=== PATIENT | male | born 1960 | race Caucasian/White ===

== ENCOUNTER → 2021-05-03 | Outpatient (CLI) | payer BC ==
[~2021-05-03] MED LIST: ASA81BEC PO; CARDIZEM CD180 MG PO; CARISOPRODOL 3350 MG PO; COUMADIN 2 MG TA2 M1; CYMBALTA20 MG PO; FLEXERIL PO; HYDROCODON-ACE1 EAC1 PO; HYDROCODON-ACE1 EAC5; NEURONTIN 300300 M1 PO; NEXIUM40 MG PO; NORCO 5-325 TA1 EACH PO; NORFLEX100 MG PO; WELLBUTRIN SR150 MG PO
[2021-05-03 11:23] LABS: HEMATOCRIT 39.3 % (42.0-52.0); HEMOGLOBIN 12.9 gm/dL (14.0-18.0); MCH 26.8 pg (26.0-34.0); MCHC 32.8 g/dL (28.0-37.0); MCV 81.9 fL (80.0-100.0); RBC 4.8 mil/uL (4.50-6.00); WBC 8.5 thou/uL (4.0-11.0)
[2021-05-03 11:28] LABS: URINE BILIRUBIN NEGATIVE (Negative); URINE BLOOD NEGATIVE (Negative); URINE CLARITY CLEAR; URINE COLOR YELLOW; URINE GLUCOSE-RANDOM* NEGATIVE (Negative); URINE KETONES NEGATIVE (Negative); URINE LEUKOCYTES-REFLEX NEGATIVE (Negative); URINE NITRITE-REFLEX NEGATIVE (Negative); URINE PROTEIN (DIPSTICK) NEGATIVE (Negative); URINE SPECIFIC GRAVITY 1.025 (1.005-1.035); URINE UROBILINOGEN 0.2 E.U./dl (0.2-1.0)
[2021-05-03 11:36] LABS: ALBUMIN 3.9 g/dL (3.4-5.0); CALCIUM 8.8 mg/dL (8.5-10.1); CREATININE 0.9 mg/dL (0.7-1.3); INR 0.98; POTASSIUM 4.2 mmol/L (3.5-5.1); PROTIME 10.7 Seconds (10.5-12.1)
== END ==
LOC: PAC 06:15
PROVIDERS: ATTEND Orthopaedic Surgery
DX: Z01.812 Encounter for preprocedural laboratory examination (principal); M16.11 Unilateral primary osteoarthritis, right hip

== ENCOUNTER 2021-05-17 06:30 | Inpatient (IN) | payer BC ==
[~2021-05-17] VITALS: Ht 182.9 cm; Wt 87.2 kg
--- NOTE | ~2021-05-17 | D ---
[facility] [place] [address] DISCHARGE SUMMARY Name: GINNY GARDNER Room #: 446-P ADM IN M.R.#: [id number] Admission: 05/17/21 Attend Phys: Glenn Quintana MD Discharge: Date of : 64 Report #: [id number] THIS REPORT FOR: cc: FAM - Family physician unknown FAM - Family physician unknown Glenn Quintana MD ~ FINAL DIAGNOSIS: End-stage degenerative arthritis, right hip. OPERATIONS AND PROCEDURES: Right total hip arthroplasty. HISTORY: This 60-year-old gentleman has progressive degenerative arthritis involving both hips. He underwent left total hip replacement in the past with good result. He presents now for elective right total hip replacement. HOSPITAL COURSE: The patient was taken to the operating room on 05/17/2021. He underwent right total hip replacement, which he tolerated well. He has resumed a regular diet and oral pain medication and is making satisfactory progress. He is anxious to proceed aggressively with therapy today and is hoping for discharge home at the end of day today or tomorrow morning if necessary. I have advised him to continue walker protection and careful limited ambulation at home. Gradually advancing as comfort and strength will allow. He will call me if any problems or questions. I will plan to see him back in my office in one week for followup. DISCHARGE MEDICATIONS: Include Cymbalta 40 mg daily, Flexeril 10 mg 3 times daily p.r.n., Xarelto 10 mg daily, hydrocodone 5 or 10 mg every 4 hours p.r.n. for pain. He will call me if there are problems. We will otherwise plan to see him back in 1 week. By: 0758 [id number] Glenn Quintana MD /nt
[2021-05-17 07:51] VITALS: BP 113/69
--- NOTE | 2021-05-17 12:35 | O ---
[facility] [place] [address] OPERATIVE REPORT Name: GINNY GARDNER Room #: 446-P ADM IN M.R.#: [id number] Admission: 05/17/21 Attend Phys: Glenn Quintana MD Discharge: Date of : 64 Report #: [id number] THIS REPORT FOR: cc: FAM - Family physician unknown FAM - Family physician unknown Glenn Quintana MD ~ DATE OF SERVICE: 05/17/2021 PREOPERATIVE DIAGNOSIS: End-stage degenerative arthritis, right hip. POSTOPERATIVE DIAGNOSIS: End-stage degenerative arthritis, right hip. PROCEDURE: Right total hip arthroplasty. HISTORY: This 60-year-old gentleman has early degenerative arthritis in both hips and underwent successful left total hip arthroplasty in the past. He now has progressive right hip pain with clinical and radiographic evidence of degenerative change. He has decided to go ahead with right total hip replacement. DESCRIPTION OF PROCEDURE: The patient was taken to the operating room where he was placed under general anesthesia. Prophylactic intravenous antibiotics were administered. He was turned to the left lateral decubitus position. The right hip, thigh and leg were meticulously prepped and draped. A slightly curving posterolateral skin incision was made centered over the greater trochanter. This was carried through subcutaneous tissues and fascia, exposing the posterior aspect of the hip joint. The short external rotators and caps were taken down and preserved and tagged with several #2 FiberWire sutures. The hip was dislocated posteriorly. Marked degenerative change on the femoral head and acetabulum was noted. A femoral neck osteotomy was performed. The canal was prepared using the White and Nephew hip system. A size 15 stem seemed to fit nicely. The calcar was trimmed down to an appropriate level. Attention was then directed to the acetabulum, which was sequentially reamed, gradually advancing to a 56 mm reamer. The White and Nephew 3-hole StikTite shell was then inserted using the 56 mm diameter size. This was placed in alignment with his true acetabulum, which positioned this in about 45 degrees off of vertical and about 20 degrees of anteversion. It was impacted into position and seated nicely and appeared to be very secure. In addition, three screws were placed through the apical holes, engaging good periacetabular bone adding to overall cup stability. The permanent White and Nephew size 15 high offset Synergy press-fit femoral component was then selected. This was impacted into the canal, placing this in about 15-20 degrees of anteversion. It also seated nicely and appeared to be secure. A trial reduction was performed and the hip was best suited for a +4 mm neck length and a 40 mm head size. These permanent components were then brought on the field using the 40 mm Oxinium head, and a +4 mm neck length sleeve. These were impacted on the Rojas taper and seated nicely [address] [address] OPERATIVE REPORT Name: AAMIRKARENGINNY Room #: 446-P [facility] IN M.R.#: [id number] Admission: 05/17/21 Attend Phys: Glenn Quintana MD Discharge: Date of : 64 Report #: [id number] and appeared to be secure. The hip was once again reduced. Alignment, range of motion, stability and leg length were assessed and felt to be satisfactory. A single Hemovac was left deep in the wound, exiting through a separate stab incision. The short external rotators and capsule were repaired back to bone using the FiberWire sutures passed through drill holes in greater trochanter. The fascia was closed with multiple #1 Vicryl sutures. The subcutaneous tissues were closed with 0 Monocryl. The skin was closed with skin emma. A sterile dressing was applied. The patient was awakened and returned to recovery room in good condition. <ELECTRONICALLY SIGNED> By: Glenn Quintana MD 05/17/21 1235 [id number] [id number] Glenn Quintana MD /nt
--- NOTE | 2021-05-17 12:52 | NUR ---
ASSUMED CARE OF PT AT 1045 THIS MORNING. PT CAME UP FROM PACU AND HAD RIGHT HIP TOTAL REPLACEMENT. REY DRESSING IN PLACE, C/D/I, HEMOVAC AND ICE PKS IN PLACE. PT IS A/OX4 AND SLEEPING FROM THE ANESTHESIA. DIO HOSE IN BILAT, KNEE HIGH AND SCD'S IN PLACE. DISTAL PULSES ARE STRONG AND PRESENT X4, SKIN INTACT WXCEPT AT INCISION WITH NO TENTING. ASSESSMENTS DOCUMENTED IN CHART AND OTHERWISE UNREMARKABLE. CALL LIGHT IN REACH WITH OTHER NEEDS WELL. IV IN RT FA SL. MEDS AND TX GIVEN NEEDED AND SCHEDULED. CONTINUE TO OBSERVE PT THROUGHOUT THE SHIFT AND DOCUMENT ANY CHANGES.
[2021-05-17 15:48] VITALS: BP 105/56
[2021-05-17 20:05] VITALS: BP 121/60
[2021-05-18 02:30] LABS: HEMATOCRIT 34.2 % (42.0-52.0); HEMOGLOBIN 11.2 gm/dL (14.0-18.0); MCH 26.8 pg (26.0-34.0); MCHC 32.6 g/dL (28.0-37.0); MCV 82.1 fL (80.0-100.0); RBC 4.17 mil/uL (4.50-6.00); RDW 14.3 % (10.5-14.5)
[2021-05-18 04:19] VITALS: BP 97/56
[2021-05-18 08:01] VITALS: BP 114/52
--- NOTE | 2021-05-18 08:22 | NUR ---
[PT AMBULATING TO BATHROOM WITH STANDBY ASSIST AND IS TOLERATING FAIR. TYLENOL PROVIDING PAIN RELIEF. DID GET AN ORDER FOR FLEXARIL FOR SPASMS IN THE RIGHT GROIN.RESTING COMFORTABLY. NO NEEDS VOICED. CALL LIGHT WITHIN REACH. FREQUENT OBSERVATION.
--- NOTE | 2021-05-18 11:13 | NUR ---
Assumed care of pt at 0700. Pt a&ox4. Pain controlled with prn pain meds. Dressing c/d/i. Hemovac drain removed. Pt cleared by physical therapy. Pt will discharge to home today. Family at bedside.
[2021-05-18 11:34] VITALS: BP 114/52
--- NOTE | 2021-05-18 11:36 | NUR ---
ASSESSMENT: cM REVIEWED CHART AND SPOKE WITH PT AND . PT IS S/P TOTAL HIP REPLACEMENT. PT LIVES IN A HOUSE WITH HIS . PT HAS 3 STEPS WITH A HANDRAIL TO ENTER THE HOME AND NO STEPS HE HAS TO USE ONCE INSIDE. PT IS NORMALLY FULLY INDEPENDENT WITH ADLS AND AMBULATION. PT IS NEEDING A WALKER FOR HOME. CM SPOKE WITH PATIENT AND AND HAVE NO PREFERENCE OF [employer]. CM NOTIFIED [employer] FROM [employer] WHO VERIFIED INSURANCE AND ISSUED PT A WALKER TO HIS ROOM. PT WORKED WITH THERAPY TODAY AND IS SAFE FOR HOME. PT WILL HAVE NO FURTHER NEEDS FROM CM.
[2021-05-18 12:13] VITALS: BP 114/52
== END 2021-05-18 14:10 | disposition home or self-care (01) | DRG 470 ==
LOC: TBA 06:30 → PRE 09:21 → 4S 10:49 → PRE 10:51 → TBA 13:02 → PRE 13:08 → 4S 05-18 14:10
PROVIDERS: ADMIT Orthopaedic Surgery; ATTEND Orthopaedic Surgery
PROC: 0SR906A Replacement of Right Hip Joint with Oxidized Zirconium on Polyethylene Synthetic Substitute, Uncemented, Open Approach (ICD-10-PCS; principal; 2021-05-17)
DX: M16.11 Unilateral primary osteoarthritis, right hip (principal); Z96.642 Presence of left artificial hip joint; D72.829 Elevated white blood cell count, unspecified; I25.2 Old myocardial infarction; Z87.891 Personal history of nicotine dependence
CPT/HCPCS: 10102; 50010; 50101; 50382; 50414; 51412; 53000; 53365; 56521; 56525; 56530; 57095; 62110; 62900; 70005

== ENCOUNTER 2021-05-22 18:53 | Emergency (ER) | payer BC ==
[~2021-05-22] VITALS: Ht 182.9 cm; Wt 83.9 kg
[2021-05-22 20:04] LABS: ABSOLUTE NEUTROPHILS 6.4 thou/uL (1.4-8.2); BASOPHILS 0.8 % (0.0-2.0); EOSINOPHILS 1.9 % (0.0-3.0); HEMATOCRIT 36.2 % (42.0-52.0); HEMOGLOBIN 11.7 gm/dL (14.0-18.0); LYMPHOCYTES 16.9 % (24.0-44.0); MCH 26.2 pg (26.0-34.0); MCHC 32.3 g/dL (28.0-37.0); MCV 81.1 fL (80.0-100.0); MONOCYTES 9.1 % (1.0-8.0); PLATELET COUNT 307 thou/uL (150-400); POLYS 71.3 % (36.0-66.0); RBC 4.46 mil/uL (4.50-6.00); RDW 13.9 % (10.5-14.5)
[2021-05-22 20:10] LABS: ANION GAP 7 mmol/L (7-16); BUN 16 mg/dL (7-18); CALCIUM 9.1 mg/dL (8.5-10.1); CHLORIDE 99 mmol/L (98-107); CO2 29 mmol/L (21-32); CREATININE 1.1 mg/dL (0.7-1.3); GLUCOSE 102 mg/dL (74-106); SODIUM 135 mmol/L (136-145)
[2021-05-22 20:21] LABS: SGOT 22 U/L (15-37); SGPT 23 U/L (16-63); TOTAL BILIRUBIN 0.7 mg/dL (0.2-1.0); TOTAL PROTEIN 6.7 g/dL (6.4-8.2); TROPONIN-I <0.06 ng/mL (<0.06)
[2021-05-22] MEDS ORDERED: XARELTO10 MG PO (20:43)
[2021-05-22 21:14] VITALS: BP 138/72
--- NOTE | 2021-05-23 07:15 | EKG ---
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
== END 2021-05-22 21:14 | disposition home or self-care (01) ==
LOC: ER 18:53
PROVIDERS: Physician Assistant
DX: I49.3 Ventricular premature depolarization (principal); I25.2 Old myocardial infarction; Z79.899 Other long term (current) drug therapy